=== PATIENT | male | born 1980 | race Caucasian/White ===

== ENCOUNTER 2024-01-22 09:28 | Inpatient (IN) | payer MEDICAID ==
[~2024-01-22] VITALS: Ht 165.1 cm; Wt 65.8 kg
[2024-01-22] MEDS: MORPHINE SULFATE 4 MG/ML INJ (FOR IV/IM USE) IV ONE (10:22)
[2024-01-22] MEDS: SODIUM CHLORIDE 0.9% 1,000 ML IV ONE (10:22)
[2024-01-22] MEDS: ONDANSETRON HCL 4MG/2ML INJ IV ONE (10:22)
[2024-01-22 10:34] LABS: BASOPHILS % 0.3 % (0.0-2.0); HEMOGLOBIN. 16.7 g/dL (14.0-18.0); LYMPHOCYTES % 8.7 % (20.0-50.0); MEAN CORPUSCULAR HEMOGLOBIN 30.8 pg (28.0-32.0); MEAN CORPUSCULAR HGB CONC 33.4 g/dL (31.0-37.0); MEAN CORPUSCULAR VOLUME 92.4 fL (80.0-94.0); MEAN PLATELET VOLUME 9.5 fl (7.4-10.4); MONOCYTES % 3.3 % (2.0-8.0); NEUTROPHILS % 87.7 % (40.0-76.0); PLATELET 283 x1000/uL (130-400); RED BLOOD CELL COUNT 5.42 mill/uL (4.7-6.1); RED CELL DISTRIBUTION WIDTH 14.3 % (11.6-14.6)
[2024-01-22 10:42] LABS: CARBON DIOXIDE 25 mEq/L (21-32); CHLORIDE 105 mEq/L (98-107); POTASSIUM 3.5 mEq/L (3.5-5.1); SODIUM 142 mEq/L (136-145)
[2024-01-22 10:43] LABS: CALCIUM 10.1 mg/dL (8.7-10.4)
[2024-01-22 10:47] LABS: CREATININE 1.1 mg/dL (0.6-1.3); GLUCOSE 128 mg/dL (70-105)
[2024-01-22 10:48] LABS: UREA NITROGEN BLOOD 12 mg/dL (9-23)
[2024-01-22 10:49] LABS: ALANINE AMINOTRANSFERASE 18 IU/L (10-49); ALBUMIN 5.1 g/dL (3.2-4.8); ASPARTATE AMINOTRANSFERASE 19 IU/L (<34); DIFFERENTIAL COMMENT 1
[2024-01-22 10:50] LABS: BILIRUBIN DIRECT 0.1 mg/dL (<=3.0); BILIRUBIN TOTAL 0.5 mg/dL (0.1-1.0)
[2024-01-22 11:01] LABS: TROPONIN I HIGH SENSITIVITY < 4 ng/L (3.0-53)
[2024-01-22] MEDS: METOCLOPRAMIDE HCL 10MG/2ML VIAL IV ONE (12:13)
[2024-01-22] MEDS: LORAZEPAM 2MG/ML INJ IV ONE (12:17)
[2024-01-22 16:00] VITALS: BP 147/66; PULSE 103; RESP 18; TEMP 36.9184
[2024-01-22 16:09] VITALS: BP 147/66; PULSE 103; RESP 18; TEMP 36.89184; O2SAT 99
[2024-01-22 20:00] VITALS: BP 131/83; PULSE 86; RESP 20; TEMP 37.55856; O2SAT 100
[2024-01-22] MEDS ORDERED: NALOXONE HCL 0.4MG/ML VIAL IV PRN (20:15)
[2024-01-22] MEDS: PANTOPRAZOLE SODIUM 40 MG/VIAL IV SCH (20:16)
[2024-01-22] MEDS: ONDANSETRON HCL 4MG/2ML INJ IV PRN (20:17)
[2024-01-22] MEDS: HYDROCODONE/ACETAMINOPHEN 5/325MG TABLET PO PRN (20:17)
[2024-01-22] MEDS: FOLIC ACID 1 MG, THIAMINE HCL 100 MG, MVI, ADULT NO.1 10 ML in DEXTROSE 5% WATER 1,000 ML IV NR (22:09)
[2024-01-23] VITALS: BP 107/33; PULSE 96; RESP 20; TEMP 36.61404; O2SAT 97
[2024-01-23 04:00] VITALS: BP 130/60; PULSE 79; RESP 20; TEMP 36.3918; O2SAT 96
[2024-01-23] MEDS: SODIUM CHLORIDE 0.9% 1,000 ML IV SCH (05:00)
[2024-01-23 08:18] LABS: CALCIUM 8.9 mg/dL (8.7-10.4); CHLORIDE 105 mEq/L (98-107); POTASSIUM 3.1 mEq/L (3.5-5.1); SODIUM 140 mEq/L (136-145)
[2024-01-23 08:19] LABS: CARBON DIOXIDE 25 mEq/L (21-32)
[2024-01-23 08:24] LABS: GLUCOSE 93 mg/dL (70-105); UREA NITROGEN BLOOD 16 mg/dL (9-23)
[2024-01-23 08:34] VITALS: PULSE 80; RESP 17; TEMP 35.78064; O2SAT 95
[2024-01-23 09:32] LABS: BASOPHILS % 0.7 % (0.0-2.0); EOSINOPHILS % 0.2 % (0.0-5.0); HEMATOCRIT. 41.8 % (42.0-52.0); HEMOGLOBIN. 13.9 g/dL (14.0-18.0); MEAN CORPUSCULAR HGB CONC 33.4 g/dL (31.0-37.0); MEAN CORPUSCULAR VOLUME 92.7 fL (80.0-94.0); MEAN PLATELET VOLUME 9.6 fl (7.4-10.4); MONOCYTES % 10.2 % (2.0-8.0); NEUTROPHILS % 62.9 % (40.0-76.0); PLATELET 246 x1000/uL (130-400); RED CELL DISTRIBUTION WIDTH 14.2 % (11.6-14.6); WHITE BLOOD COUNT 11.8 x1000/uL (4.5-11.0)
[2024-01-23] MEDS: DEXT 5%/0.45% NACL 1000ML 1,000 ML IV SCH (10:00)
[2024-01-23] MEDS: MORPHINE SULFATE 2 MG/ML INJ (NOT FOR IM USE) IV PRN (10:55)
[2024-01-23 12:00] VITALS: BP 118/73; PULSE 75; RESP 18; TEMP 36.6696; O2SAT 98
[2024-01-23] MEDS: IOHEXOL-300 100 ML BOTTLE ONE (13:16)
[2024-01-23 18:22] LABS: TROPONIN I HIGH SENSITIVITY 5 ng/L (3.0-53)
[2024-01-23 20:00] VITALS: BP 133/83; PULSE 91; RESP 20; TEMP 36.16956; O2SAT 97
[2024-01-24 06:53] LABS: CHLORIDE 103 mEq/L (98-107); POTASSIUM 3.5 mEq/L (3.5-5.1); SODIUM 138 mEq/L (136-145)
[2024-01-24 06:54] LABS: CARBON DIOXIDE 26 mEq/L (21-32)
[2024-01-24 06:59] LABS: CREATININE 0.9 mg/dL (0.6-1.3); GLUCOSE 90 mg/dL (70-105); UREA NITROGEN BLOOD 14 mg/dL (9-23)
[2024-01-24 08:00] VITALS: BP 116/85; PULSE 16; RESP 16; TEMP 36.78072; O2SAT 98
[2024-01-24 08:40] LABS: BASOPHILS % 0.6 % (0.0-2.0); HEMATOCRIT. 42.1 % (42.0-52.0); HEMOGLOBIN. 14.3 g/dL (14.0-18.0); LYMPHOCYTES % 24.4 % (20.0-50.0); MEAN CORPUSCULAR HEMOGLOBIN 31.1 pg (28.0-32.0); MEAN CORPUSCULAR VOLUME 91.6 fL (80.0-94.0); MEAN PLATELET VOLUME 9.5 fl (7.4-10.4); MONOCYTES % 6.8 % (2.0-8.0); NEUTROPHILS % 68.2 % (40.0-76.0); PLATELET 231 x1000/uL (130-400); RED CELL DISTRIBUTION WIDTH 13.9 % (11.6-14.6); WHITE BLOOD COUNT 10.8 x1000/uL (4.5-11.0)
[2024-01-24 12:00] VITALS: BP 121/76; PULSE 17; RESP 16; TEMP 36.9474; O2SAT 100
[2024-01-24 20:00] VITALS: BP 113/65; PULSE 75; RESP 18; TEMP 36.114; O2SAT 96
[2024-01-24 22:00] VITALS: BP 129/80; PULSE 71; RESP 18; TEMP 37.55856; O2SAT 98
[2024-01-25] VITALS: BP 129/80; RESP 18; TEMP 37.55856; O2SAT 98
[2024-01-25 04:00] VITALS: BP 130/82; PULSE 72; RESP 18; TEMP 37.44744; O2SAT 100
[2024-01-25 08:00] VITALS: BP 97/61; PULSE 69; RESP 18; TEMP 36.78072; O2SAT 97
[2024-01-25 10:50] VITALS: BP 97/61; PULSE 69; TEMP 98.2; O2SAT 97
== END 2024-01-25 11:50 | disposition home or self-care (01) | DRG 207 ==
LOC: ER 09:28 → 5WST 13:40 → EDBEDREQ 13:44 → 6WST 01-24 19:16
PROVIDERS: ADMIT Internal Medicine; ATTEND Internal Medicine
DX: I95.9 Hypotension, unspecified (principal); K76.0 Fatty (change of) liver, not elsewhere classified; D18.03 Hemangioma of intra-abdominal structures; E86.9 Volume depletion, unspecified; R10.13 Epigastric pain; R55 Syncope and collapse; D72.829 Elevated white blood cell count, unspecified; F10.10 Alcohol abuse, uncomplicated; N20.0 Calculus of kidney; D64.9 Anemia, unspecified; E87.6 Hypokalemia; Z79.899 Other long term (current) drug therapy
CPT/HCPCS: 36415; 71045; 74176; 74177; 80048; 80076; 83735; 84484; 85025; 93005; 97166; 99285; J2060; J2270; J2405; J2470; J2765; J3411; J3490; J7030; J7070; Q9967